=== PATIENT | male | born 1945 | race Caucasian/White ===

== ENCOUNTER 2021-12-07 09:41 | Day surgery (SDC) | payer MEDICARE, BC, SELFPAY ==
[2021-11-30 16:53] VITALS: BMI 27.7
[2021-12-07] MEDS: Lactated Ringers 500 ML 20 ML IVCONT (10:00)
[2021-12-07 10:01] VITALS: BP 157/76; PULSE 67; RESP 19; TEMP 36.1; O2SAT 95
--- NOTE | 2021-12-07 10:48 | HO.ANESPROP2 ---
[facility] Past Medical History Medical History (Updated 11/30/21 @ 17:02 by Felipa Silva RN) GERD (gastroesophageal reflux disease) History of Howard's esophagus HTN (hypertension) Hyperlipidemia Family History Family history of problems with anesthesia: No Surgical History Surgical History History of esophagogastroduodenoscopy (EGD) Hx of colonoscopy Hx of esophagectomy History of Problems with Anesthesia: No Social History Social History Are you DNR?: No Advance Directives: No Advance Directives Information Provided: Yes Meds Allergies Allergy/AdvReac Type Severity Reaction Status Date / Time No Known Allergies Allergy Verified 12/07/21 09:59 Active Medications: Current Medications Ondansetron HCl (Ondansetron Hcl 4 Mg/2 Ml Vial) 4 mg IVPUSH ONCE PRN PRN Reason: Nausea and Vomiting Sodium Biphosphate/Sodium Phosphate (Sodium Phosphate,Treutlen-Dibasic 133 Ml Enema) 133 ml [place] ONCE PRN PRN Reason: Poor Colonoscopy Prep Results Home Medications Medication Instructions Recorded Confirmed Last Taken Type Glucosamine 11/30/21 Unknown History PreserVision AREDS 11/30/21 Unknown History Vitamin D3 11/30/21 Unknown History amlodipine 2.5 mg tablet 2.5 mg PO DAILY 11/30/21 11/30/21 Unknown History furosemide 20 mg tablet 20 mg PO DAILY 11/30/21 11/30/21 Unknown History metoprolol succinate 25 mg PO DAILY 11/30/21 12/07/21 Unknown History mxpznfkf-rmo-hucwb acid 300 1 tab PO DAILY 11/30/21 11/30/21 Unknown History mcg-lycopene 600 mcg-lutein 300 mcg tablet (Centrum Silver Ultra Men's) omeprazole 40 mg capsule,delayed 40 mg PO DAILY 11/30/21 11/30/21 Unknown History release simvastatin 20 mg tablet 20 mg PO BEDTIME 11/30/21 11/30/21 Unknown History timolol 0.25 % eye drops 1 drp ophthalmic (eye) DAILY 11/30/21 11/30/21 Unknown History trazodone 50 mg tablet 50 mg PO BEDTIME 11/30/21 11/30/21 Unknown History Exam Exam Date and Time: December 07, 2021 1048 Height,Weight and Vital Signs: Height 5 ft 4.25 in Weight 73.936 kg Last Vital Signs Temp 97 F 12/07/21 10:01 Pulse 67 12/07/21 10:01 Resp 19 12/07/21 10:01 BP 157/76 H 12/07/21 10:01 Pulse Ox 95 12/07/21 10:01 O2 Del Method 12/07/21 10:01 Airway Mallampati Class: II TM Dist: >3cm Neck ROM: Full Denture: Upper Partial: Lower Loose/Missing/Broken Teeth: Yes and Lower Heart: rrr Lungs: clear Assessment and Plan Final Anesthetic Review Family History of Problems with Anesthesia: No History of Problems with Anesthesia: No NPO: Yes ASA Class: II Final Preanesthetic Review: No Changes in Pt Med Stat, Meds/Allgs Chart Reviewed, Consent Obtained/Reviewed and Anes Risks/Benef Reviewed Patient Risk: Intermediate Procedure Risk: Low Anesthetic Plan Anesthetic Plan: MAC: Disposition: Standard PACU
[2021-12-07 11:53] VITALS: BP 125/66; PULSE 58; RESP 16; TEMP 36.4; O2SAT 96
--- NOTE | 2021-12-07 11:53 | P.BOP_ITS ---
Brief Operative Note Date of Service: 12/07/21 Pre-op diagnosis: Screening Post-op diagnosis: other (Diverticulosis) Procedure: Colonoscopy to the cecum and TI Surgeon: Severo Carrion Anesthesia: MAC Was an Hand Umbrella Tipper used for this Procedure?: No Estimated blood loss (mL): 0 Pathology: none sent Condition: stable Disposition: PACU
[2021-12-07 12:07] VITALS: BP 131/65; PULSE 55; RESP 16; O2SAT 98
[2021-12-07 12:22] VITALS: BP 133/65; PULSE 54; RESP 16; TEMP 36.1; O2SAT 97
[2021-12-07 12:35] VITALS: BP 133/64; PULSE 56; RESP 16; TEMP 36.1; O2SAT 97
--- NOTE | 2021-12-07 23:17 | OP_ITS ---
SURGEON: Severo Carrion MD INDICATIONS: The patient presents for evaluation of personal history of tubular adenoma of the colon and colorectal cancer screening. Full consent obtained from him for this, including risks of bleeding and perforation. PREOPERATIVE DIAGNOSIS: POSTOPERATIVE DIAGNOSIS: PROCEDURE PERFORMED: Colonoscopy to the cecum and terminal ileum. ESTIMATED BLOOD LOSS: COMPLICATIONS: ANESTHESIA: Monitored anesthesia care. ASSISTANTS: SPECIMENS: PREOPERATIVE DIAGNOSES: Personal history of tubular adenoma of the colon, and colorectal cancer screening. POSTOPERATIVE DIAGNOSES: Personal history of tubular adenoma of the colon, and colorectal cancer screening, diverticulosis, and internal hemorrhoids. DESCRIPTION OF PROCEDURE: The patient was placed in the left lateral decubitus position. The digital rectal exam revealed no abnormalities. The Olympus video pediatric colonoscope was entered into the rectum and advanced to the cecum with the assistance of abdominal wall pressure. Once in the cecum, I did identify normal-appearing cecal pouch with appendiceal orifice a normal-appearing ileocecal valve. The terminal ileum was cannulated and appeared normal. Scope was withdrawn back in the colon. The entire cecum and ileocecal valve appeared normal. The scope was slowly withdrawn assessing all mucosal surfaces carefully. Preparation was very good throughout the colon, although the sigmoid colon had a fair amount of liquid stool and some residual debris, that was irrigated and suctioned away as best as possible. I did not visualize any polyps, colitis, nor angiodysplasia. There was a moderate amount of sigmoid diverticulosis. In the rectum, scope was retroflexed visualizing internal hemorrhoids, but no other pathology. The rectal mucosa appeared normal. The scope was straightened and withdrawn from the patient. He tolerated the procedure well and was returned to the recovery area in stable condition. IMPRESSION: 1. Diverticulosis. 2. Internal hemorrhoids. PLAN: Given the negative exam and his age, I do not think he will need any further screening colonoscopies in the future. He would otherwise see me on a p.r.n. basis. MD ANN MARIE Gleason/ANGEL / [id number] MTDD
== END 2021-12-07 13:10 | disposition home or self-care (01) ==
PROVIDERS: PCP Family Medicine; Visit Provider Internal Medicine
PROC: 0DJD8ZZ Inspection of Lower Intestinal Tract, Via Natural or Artificial Opening Endoscopic (ICD-10-PCS; CPT 45378; principal; 2021-12-07 11:00)
DX: Z12.11 Encounter for screening for malignant neoplasm of colon (principal); Z86.010 Personal history of colon polyps; K57.30 Diverticulosis of large intestine without perforation or abscess without bleeding; K64.8 Other hemorrhoids; K21.9 Gastro-esophageal reflux disease without esophagitis; Z90.49 Acquired absence of other specified parts of digestive tract; Z87.19 Personal history of other diseases of the digestive system; I10 Essential (primary) hypertension; E78.5 Hyperlipidemia, unspecified; Z79.899 Other long term (current) drug therapy; Z87.891 Personal history of nicotine dependence
CPT/HCPCS: G0105